=== PATIENT | female | born 1975 | race Caucasian/White ===

== ENCOUNTER 2022-08-20 11:03 | Day surgery (SDC) | payer BC ==
[~2022-08-20 11:03] MED LIST: Lactated Ringers 1,000 ML IV SCH; Sodium Chloride 0.9% 10 ML Syringe FLUSH PRN; Sodium Chloride 0.9% 2.5 ML Syringe FLUSH PRN; Sodium Chloride 0.9% 20 ML SDV IV PRN
[2022-08-20] MEDS ORDERED: Lidocaine 2% 5 ML SDV ONE (12:26)
[2022-08-20] MEDS ORDERED: Propofol 200 MG/20 ML SDV ONE ×2 (12:27→12:51)
== END 2022-08-20 13:52 | disposition home or self-care (01) ==
LOC: MW.SDS 11:03
PROVIDERS: ATTEND Surgery
DX: K29.50 Unspecified chronic gastritis without bleeding (principal); K63.5 Polyp of colon; K80.20 Calculus of gallbladder without cholecystitis without obstruction; K62.1 Rectal polyp; K44.9 Diaphragmatic hernia without obstruction or gangrene; N13.2 Hydronephrosis with renal and ureteral calculous obstruction; N13.30 Unspecified hydronephrosis; E66.9 Obesity, unspecified; Z68.38 Body mass index [BMI] 38.0-38.9, adult; Z88.0 Allergy status to penicillin; Z79.899 Other long term (current) drug therapy
CPT/HCPCS: 43239; 45380; 81025; J2704; J7120; 00813; 87045; 87046; 87338; 87449; 87899; J3490

== ENCOUNTER 2022-09-01 11:10 | Day surgery (SDC) | payer BC ==
[~2022-09-01 11:10] MED LIST changes: +Albuterol 0.083% 2.5 MG/3 ML Neb Soln NEB PRN; +HYDROmorphone 1 MG/ML Syringe IVPUSH PRN; +Metoclopramide 10 MG/2 ML SDV IVPUSH PRN; +Morphine 2 MG/ML SYRINGE IVPUSH PRN; +Naloxone 0.4 MG/ML SDV IVPUSH PRN; +Ondansetron 4 MG/2 ML SDV IVPUSH PRN; +droPERidol 5 MG/2 ML SDV IVPUSH PRN; +fentaNYL 50 MCG/ML SDV IVPUSH PRN
[2022-09-01] MEDS ORDERED: Dexamethasone 4 MG/ML 5 ML MDV ONE (11:59)
[2022-09-01] MEDS ORDERED: Ondansetron 4 MG/2 ML SDV ONE (11:59)
[2022-09-01] MEDS ORDERED: Ketorolac 30 MG/ML SDV ONE (11:59)
[2022-09-01] MEDS ORDERED: Lidocaine 2% 5 ML SDV ONE (11:59)
[2022-09-01] MEDS ORDERED: Rocuronium Bromide 50 MG/5 ML Syringe ONE (11:59)
[2022-09-01] MEDS ORDERED: Sugammadex Sodium 200 MG/2 ML VIAL ONE (11:59)
[2022-09-01] MEDS ORDERED: fentaNYL 100 MCG/2 ML SDV ONE (12:00)
[2022-09-01] MEDS ORDERED: Propofol 200 MG/20 ML SDV ONE (12:00)
[2022-09-01] MEDS ORDERED: Bupivacaine 0.5% 30 ML SDV ONE (12:02)
[2022-09-01] MEDS ORDERED: Bupivacaine 25%/EPINEPHrine/PF 30 ML ONE (12:13)
[2022-09-01] MEDS ORDERED: Ropivacaine 0.5% 5 MG/ML 30 ML SDV ONE (12:13)
[2022-09-01] MEDS ORDERED: ceFAZolin 2 GM Vial ONE (12:25)
[2022-09-01] MEDS ORDERED: ceFAZolin 2 GM in Sodium Chloride 0.9% 50 ML IV ONE (14:39)
== END 2022-09-01 15:40 | disposition home or self-care (01) ==
LOC: MW.SDS 11:10
PROVIDERS: ATTEND Surgery
DX: K80.10 Calculus of gallbladder with chronic cholecystitis without obstruction (principal); N13.2 Hydronephrosis with renal and ureteral calculous obstruction; F41.9 Anxiety disorder, unspecified; E66.9 Obesity, unspecified; Z88.0 Allergy status to penicillin; Z79.899 Other long term (current) drug therapy; Z68.38 Body mass index [BMI] 38.0-38.9, adult
CPT/HCPCS: 47563; 81025; J0690; J1100; J1885; J2405; J2704; J2795; J3010; J3490; J7120

== ENCOUNTER 2024-05-03 11:31 | Emergency (ER) | payer BC ==
[2024-05-03] MEDS: cefTRIAXone 2 GM in Sodium Chloride 0.9% 50 ML IV ONE (12:40)
[2024-05-03] MEDS: Sodium Chloride 0.9% 2,000 ML IV ONE (12:40)
[2024-05-03] MEDS ORDERED: Morphine 2 MG/ML SYRINGE IVPUSH PRN (13:51)
[2024-05-03] MEDS: Lactated Ringers 1,000 ML IV SCH (14:11)
[2024-05-03] MEDS: Morphine 2 MG/ML SYRINGE IVPUSH ONE (14:11)
[2024-05-03 15:58] LABS: CALCIUM 8.7 mg/dL (8.5-10.1); CARBON DIOXIDE,CO2 22.3 mmol/L (21.0-32.0); CREATININE 3.5 mg/dL (0.6-1.0); EST CRCL DRUG DOSING (CG) 18.07 mL/min; POTASSIUM,K 3.5 mmol/L (3.5-5.1)
== END 2024-05-03 16:37 ==
LOC: MW.ED 11:31
DX: N13.2 Hydronephrosis with renal and ureteral calculous obstruction (principal); N17.9 Acute kidney failure, unspecified; R50.9 Fever, unspecified; Z86.69 Personal history of other diseases of the nervous system and sense organs; Z87.442 Personal history of urinary calculi; E86.0 Dehydration; E66.9 Obesity, unspecified; Z88.0 Allergy status to penicillin; Z79.899 Other long term (current) drug therapy; Z68.36 Body mass index [BMI] 36.0-36.9, adult
CPT/HCPCS: 36415; 74176; 80048; 83605; 87040; 96361; 96365; 96375; 99285; J0696; J2270; J3490; J7030; J7120; 99284